=== PATIENT | female | born 1970 | race Two or more races ===

== ENCOUNTER 2020-10-04 12:23 | Inpatient (IN) | payer MEDICAID, OTHER ==
[~2020-10-04] VITALS: Ht 170.2 cm; Wt 73.9 kg
[2020-10-04] VITALS (9 sets, daily range): BP systolic 107–124; BP diastolic 61–74
[2020-10-04] MEDS ORDERED: SODIUM CHLORIDE 0.9% 1,000 ML IV ONE (12:30)
[2020-10-04 12:42] LABS: Basophils # (auto) 0 10 ^3/uL (0-0.2); Eosinophils # (auto) 0.1 10 ^3/uL (0-0.8); Lymphocytes # (auto) 0.9 10 ^3/uL (0.4-5.4); Monocytes # (auto) 0.3 10 ^3/uL (0-1.3); White Blood Cell 4.8 10^3/uL (4.4-10.8)
[2020-10-04 12:44] LABS: Basophils % (auto) 0.8 % (0.0-2.0); Eosinophils % (auto) 1.7 % (0.0-7.0); Hematocrit 14.1 % (36.0-46.0); Lymphocytes % (auto) 18.7 % (10.0-50.0); Mean Corpuscular Hemoglobin 17.9 pg (28.0-32.0); Mean Corpuscular Hgb Conc. 29.1 g/dL (32.0-36.0); Mean Corpuscular Volume 61.5 fL (80.0-100.0); Monocytes % (auto) 6.3 % (0.0-12.0); Neutrophils # (auto) 3.5 10 ^3/uL (1.6-8.6); Neutrophils % (auto) 72.5 % (37.0-80.0); Nucleated Red Blood Cells % 1.1 %; Red Blood Cells 2.29 10^6/uL (4.0-5.20)
[2020-10-04 12:47] LABS: Hemoglobin 4.1 g/dL (12.2-16.2); Red Cell Distribution Width 29.5 % (11.8-14.3)
[2020-10-04 12:56] LABS: Albumin 3.1 g/dL (3.4-5.0); Calcium 8.4 mg/dL (8.5-10.1); Potassium 3.7 mmol/L (3.5-5.1)
[2020-10-04 13:00] LABS: BUN/Creatinine Ratio 19.7; Bilirubin, Total 0.3 mg/dL (0.2-1.0); Total Protein 7.3 g/dL (6.4-8.2)
[2020-10-04] MEDS ORDERED: HYDROcodone-ACET 5/325MG TAB PO ONE (15:30)
[2020-10-04] MEDS ORDERED: DOCUSATE SOD 100 MG CAP PO PRN (22:15)
[2020-10-04] MEDS ORDERED: ACETAMINOPHEN 325 MG TAB PO PRN (22:15)
[2020-10-04] MEDS ORDERED: MORPHINE SULFATE INJECTION 2 MG/ML SYRG IV PRN (22:15)
[2020-10-04] MEDS ORDERED: NITROGLYCERIN 0.4 MG SL TAB SL PRN (22:15)
[2020-10-04] MEDS: HYDROcodone-ACET 5/325MG TAB PO PRN (22:55)
[2020-10-04] MEDS ORDERED: INFLUENZA QUAD 2020-2021 0.5 ML SYRG IM ONE (23:45)
[2020-10-04] MEDS ORDERED: ACET650T12 PO (23:45)
[2020-10-04] MEDS: MORPHINE SULFATE 4 MG/ML SYR/VIAL IV PRN (23:59)
[2020-10-05] VITALS (10 sets, daily range): BP systolic 111–120; BP diastolic 64–87
[2020-10-05 02:55] LABS: Urine Amorphous Crystal FEW /hpf (None Seen); Urine Bacteria FEW /hpf (None Seen); Urine Blood 3+ /uL (Negative); Urine Mucus FEW (None Seen); Urine Specific Gravity 1.011 (1.001-1.035); Urine WBC 8 /hpf (0 - 5)
[2020-10-05 05:48] LABS: Basophils # (auto) 0 10 ^3/uL (0-0.2); Eosinophils # (auto) 0.2 10 ^3/uL (0-0.8); Monocytes # (auto) 0.4 10 ^3/uL (0-1.3); Neutrophils # (auto) 3.1 10 ^3/uL (1.6-8.6); White Blood Cell 4.6 10^3/uL (4.4-10.8)
[2020-10-05 05:50] LABS: Basophils % (auto) 1.1 % (0.0-2.0); Eosinophils % (auto) 3.9 % (0.0-7.0); Hematocrit 23.7 % (36.0-46.0); Hemoglobin 7.3 g/dL (12.2-16.2); Lymphocytes % (auto) 20.9 % (10.0-50.0); Mean Corpuscular Hgb Conc. 30.9 g/dL (32.0-36.0); Mean Corpuscular Volume 71.4 fL (80.0-100.0); Monocytes % (auto) 8.1 % (0.0-12.0); Nucleated Red Blood Cells % 0.3 %; Red Blood Cells 3.32 10^6/uL (4.0-5.20)
[2020-10-05 05:51] LABS: Red Cell Distribution Width 30.4 % (11.8-14.3)
[2020-10-05 06:09] LABS: Calcium 8.4 mg/dL (8.5-10.1); Potassium 3.9 mmol/L (3.5-5.1)
[2020-10-05 06:13] LABS: Albumin 2.8 g/dL (3.4-5.0); BUN/Creatinine Ratio 16.9; Bilirubin, Total 0.5 mg/dL (0.2-1.0); Total Protein 6.7 g/dL (6.4-8.2)
[2020-10-05] MEDS: PANTOPRAZOLE 40 MG/10 ML VIAL INJ IV SCH (09:39)
[2020-10-05] MEDS: ZINC SULFATE 220mg CAP or TAB PO SCH (09:39)
[2020-10-05] MEDS: ONDANSETRON HCL 4 MG/2 ML VIAL IV PRN ×2 (09:39→14:24)
[2020-10-05] MEDS: ASCORBIC ACID 500 MG TAB PO SCH ×2 (09:40→21:52)
[2020-10-05] MEDS: MULTIPLE VITAMIN TAB PO SCH (09:40)
[2020-10-05] MEDS: MORPHINE SULFATE 4 MG/ML SYR/VIAL IV PRN (14:21)
[2020-10-05] MEDS: Ensure HIGH Protein Chocolate 8oz Bottle PO SCH ×2 (14:24→18:48)
[2020-10-05 18:18] LABS: Hemoglobin 7.4 g/dL (12.2-16.2)
[2020-10-05 18:19] LABS: Hematocrit 23.2 % (36.0-46.0)
[2020-10-05] MEDS: SODIUM CHLORIDE 0.9% 1,000 ML IV SCH ×2 (18:49)
[2020-10-05] MEDS: HYDROcodone-ACET 5/325MG TAB PO PRN (21:52)
[2020-10-06 05:17] VITALS: BP 116/70
[2020-10-06 06:34] LABS: Basophils # (auto) 0 10 ^3/uL (0-0.2); Basophils % (auto) 0.7 % (0.0-2.0); Eosinophils # (auto) 0.2 10 ^3/uL (0-0.8); Hemoglobin 7.3 g/dL (12.2-16.2); Lymphocytes # (auto) 0.9 10 ^3/uL (0.4-5.4); Mean Corpuscular Volume 70.6 fL (80.0-100.0); Monocytes # (auto) 0.4 10 ^3/uL (0-1.3); Neutrophils # (auto) 3.6 10 ^3/uL (1.6-8.6); White Blood Cell 5.1 10^3/uL (4.4-10.8)
[2020-10-06 06:36] LABS: Eosinophils % (auto) 4.4 % (0.0-7.0); Hematocrit 23.2 % (36.0-46.0); Lymphocytes % (auto) 17.3 % (10.0-50.0); Mean Corpuscular Hemoglobin 22.3 pg (28.0-32.0); Mean Corpuscular Hgb Conc. 31.6 g/dL (32.0-36.0); Neutrophils % (auto) 70.6 % (37.0-80.0); Nucleated Red Blood Cells % 0.4 %; Red Blood Cells 3.28 10^6/uL (4.0-5.20)
[2020-10-06 06:50] LABS: Red Cell Distribution Width 31.5 % (11.8-14.3)
[2020-10-06 06:54] LABS: % Iron Saturation 3.4 % (15-50)
[2020-10-06 06:55] LABS: Potassium 3.7 mmol/L (3.5-5.1)
[2020-10-06 06:59] LABS: Albumin 2.8 g/dL (3.4-5.0); BUN/Creatinine Ratio 18.2; Bilirubin, Total 0.5 mg/dL (0.2-1.0); Calcium 8.5 mg/dL (8.5-10.1); Total Protein 6.8 g/dL (6.4-8.2)
[2020-10-06 08:00] VITALS: BP 109/64
[2020-10-06 09:04] VITALS: BP 109/64
[2020-10-06] MEDS: Ensure HIGH Protein Chocolate 8oz Bottle PO SCH ×3 (09:54→18:11)
[2020-10-06] MEDS: MULTIPLE VITAMIN TAB PO SCH (09:54)
[2020-10-06] MEDS: ASCORBIC ACID 500 MG TAB PO SCH ×2 (09:54→21:53)
[2020-10-06] MEDS: PANTOPRAZOLE 40 MG/10 ML VIAL INJ IV SCH (09:54)
[2020-10-06] MEDS: ZINC SULFATE 220mg CAP or TAB PO SCH (09:54)
[2020-10-06] MEDS: medroxyPROGESTERone ACETATE 5 MG TAB PO SCH (09:56)
[2020-10-06] MEDS ORDERED: SODIUM FERR GLUC 62.5MG/5ML 125 MG in SODIUM CHL 0.9% 100 ML IV ONE (12:30)
[2020-10-06 13:00] VITALS: BP 108/64
[2020-10-06] MEDS: SODIUM CHLORIDE 0.9% 1,000 ML IV SCH (13:13)
[2020-10-06 17:00] VITALS: BP 107/62
[2020-10-06 22:00] VITALS: BP 119/66
[2020-10-07] MEDS: SODIUM CHLORIDE 0.9% 1,000 ML IV SCH (00:15)
[2020-10-07] MEDS: MORPHINE SULFATE 4 MG/ML SYR/VIAL IV PRN (03:19)
[2020-10-07 05:00] VITALS: BP 117/74
[2020-10-07 07:42] LABS: Potassium 3.8 mmol/L (3.5-5.1)
[2020-10-07 07:49] LABS: Basophils # (auto) 0 10 ^3/uL (0-0.2); Eosinophils # (auto) 0.2 10 ^3/uL (0-0.8); Eosinophils % (auto) 4.1 % (0.0-7.0); Lymphocytes # (auto) 1.2 10 ^3/uL (0.4-5.4); Neutrophils # (auto) 3.5 10 ^3/uL (1.6-8.6)
[2020-10-07 07:52] LABS: Basophils % (auto) 0.6 % (0.0-2.0); Hematocrit 22.9 % (36.0-46.0); Hemoglobin 7.3 g/dL (12.2-16.2); Lymphocytes % (auto) 22.4 % (10.0-50.0); Mean Corpuscular Hemoglobin 22.4 pg (28.0-32.0); Mean Corpuscular Hgb Conc. 31.7 g/dL (32.0-36.0); Mean Corpuscular Volume 70.6 fL (80.0-100.0); Monocytes # (auto) 0.4 10 ^3/uL (0-1.3); Monocytes % (auto) 6.9 % (0.0-12.0); Nucleated Red Blood Cells % 0.3 %; Red Blood Cells 3.25 10^6/uL (4.0-5.20); White Blood Cell 5.3 10^3/uL (4.4-10.8)
[2020-10-07 07:53] LABS: BUN/Creatinine Ratio 17.5; Calcium 8.5 mg/dL (8.5-10.1)
[2020-10-07 08:09] LABS: Red Cell Distribution Width 31.8 % (11.8-14.3)
[2020-10-07 09:00] VITALS: BP_SYST 113; BP_SYST 116; BP_DIAS 67; BP_DIAS 69
[2020-10-07] MEDS: ZINC SULFATE 220mg CAP or TAB PO SCH (09:16)
[2020-10-07] MEDS: MULTIPLE VITAMIN TAB PO SCH (09:16)
[2020-10-07] MEDS: ASCORBIC ACID 500 MG TAB PO SCH (09:16)
[2020-10-07] MEDS: Ensure HIGH Protein Chocolate 8oz Bottle PO SCH ×2 (09:16→12:00)
[2020-10-07] MEDS: medroxyPROGESTERone ACETATE 5 MG TAB PO SCH (09:16)
[2020-10-07] MEDS: PANTOPRAZOLE 40 MG/10 ML VIAL INJ IV SCH (09:16)
[2020-10-07 12:59] VITALS: BP 114/67
[2020-10-07 14:01] VITALS: BP 116/67
== END 2020-10-07 15:05 | disposition home or self-care (01) | DRG 532 ==
LOC: ER 12:23 → EDBD 12:23 → TELE 12:24 → TELE-WESTW 23:17
PROVIDERS: ADMIT Nurse Practitioner Family; ATTEND Internal Medicine
PROC: 30233N1 Transfusion of Nonautologous Red Blood Cells into Peripheral Vein, Percutaneous Approach (ICD-10-PCS; principal; 2020-10-04)
DX: N93.8 Other specified abnormal uterine and vaginal bleeding (principal); E44.0 Moderate protein-calorie malnutrition; D25.1 Intramural leiomyoma of uterus; D50.9 Iron deficiency anemia, unspecified; R93.89 Abnormal findings on diagnostic imaging of other specified body structures; R79.89 Other specified abnormal findings of blood chemistry; R51.9 Headache, unspecified
CPT/HCPCS: 36415; 36430; 71045; 76856; 80048; 80053; 81001; 83540; 83550; 84443; 85014; 85018; 85025; 86850; 86900; 86901; 86920; 87081; 96361; 96374; 96375; C9113; G0378; J2405

== ENCOUNTER 2021-03-30 06:02 | Emergency (ER) | payer MEDICAID ==
[~2021-03-30] VITALS: Ht 170.2 cm; Wt 64.9 kg
[~2021-03-30 06:02] MED LIST: ACET650T12 PO
[2021-03-30] MEDS ORDERED: KETOROLAC TROMETH 60MG/2ML VIAL IM ONE (07:30)
[2021-03-30] MEDS ORDERED: METHOCARBAMOL 500 MG TAB PO ONE (07:30)
[2021-03-30] MEDS ORDERED: MEPERIDINE HCL (50 MG/ML) 1 ML VIAL IM ONE (08:45)
[2021-03-30] MEDS ORDERED: methylPREDNISolone SOD SUCC 125 MG/2 ML VL IM ONE (08:45)
[2021-03-30] MEDS ORDERED: PROMETHAZINE HCL 25 MG/ML 1ML IM ONE (08:45)
[2021-03-30 09:04] VITALS: BP 132/85
== END 2021-03-30 09:31 | disposition left against medical advice (07) ==
LOC: ER 06:02
DX: S32.029A Unspecified fracture of second lumbar vertebra, initial encounter for closed fracture (principal); S34.102A Unspecified injury to L2 level of lumbar spinal cord, initial encounter; C79.51 Secondary malignant neoplasm of bone; X50.1XXA Overexertion from prolonged static or awkward postures, initial encounter; Y93.01 Activity, walking, marching and hiking; Y92.89 Other specified places as the place of occurrence of the external cause; Y99.8 Other external cause status
CPT/HCPCS: 72131; 74176; 96372; 99285; J1885; J2175; J2550; J2930

== ENCOUNTER 2021-06-04 19:08 | Emergency (ER) | payer MEDICAID ==
[~2021-06-04] VITALS: Ht 243.8 cm; Wt 54.4 kg
[2021-06-04 20:09] LABS: Basophils # (auto) 0 10 ^3/uL (0-0.2); Basophils % (auto) 0.4 % (0.0-2.0); Eosinophils # (auto) 0 10 ^3/uL (0-0.8); Eosinophils % (auto) 0.4 % (0.0-7.0); Lymphocytes # (auto) 0.4 10 ^3/uL (0.4-5.4); Monocytes # (auto) 0.6 10 ^3/uL (0-1.3)
[2021-06-04 20:10] LABS: Hematocrit 27.5 % (36.0-46.0); Lymphocytes % (auto) 8.7 % (10.0-50.0); Mean Corpuscular Hgb Conc. 32.5 g/dL (32.0-36.0); Mean Corpuscular Volume 82.9 fL (80.0-100.0); Monocytes % (auto) 11.7 % (0.0-12.0); Neutrophils % (auto) 78.8 % (37.0-80.0); Red Blood Cells 3.32 10^6/uL (4.0-5.20); Red Cell Distribution Width 14.5 % (11.8-14.3)
[2021-06-04 20:27] LABS: Alanine Aminotransferase 9 U/L (13-56); Albumin 2.9 g/dL (3.4-5.0); Anion Gap 21 (5-15); Aspartate Aminotransferase 74 U/L (15-37); Calcium 8.5 mg/dL (8.5-10.1); Carbon Dioxide 11 mmol/L (21-32); Chloride 101 mmol/L (98-107); GFR African American 4 mL/min; GFR Non-African American 3 mL/min; Glucose 69 mg/dL (74-106); Magnesium 2.9 mg/dL (1.6-2.6); Sodium 133 mmol/L (136-145)
[2021-06-04 20:32] LABS: Alkaline Phosphatase 63 U/L (45-117); Bilirubin, Total 0.4 mg/dL (0.2-1.0); Total Protein 7.7 g/dL (6.4-8.2)
[2021-06-04 20:40] LABS: Blood Urea Nitrogen 120 mg/dL (7-18); Potassium 6.3 mmol/L (3.5-5.1)
[2021-06-04 20:43] LABS: Alcohol, Urine < 3.0 mg/dL (0-10); Barbiturate Scree,Urine NEGATIVE (NEGATIVE); Benzodiazephine Screen, Urine NEGATIVE (NEGATIVE); Cannabinoid Screen, Urine NEGATIVE (NEGATIVE); Cocaine Screen, Urine NEGATIVE (NEGATIVE); Opiate Scree,Urine POSITIVE (NEGATIVE); Phencyclidine Screen, Urine NEGATIVE (NEGATIVE)
[2021-06-04 20:51] LABS: Urine Bacteria NONE SEEN /hpf (None Seen); Urine Blood Negative /uL (Negative); Urine WBC 3 /hpf (0 - 5)
[2021-06-04 20:52] LABS: Amphetamine Screen, Urine NEGATIVE (NEGATIVE)
[2021-06-04] MEDS ORDERED: FUROSEMIDE 20 MG/2 ML VIAL IV ONE (21:00)
[2021-06-04] MEDS ORDERED: SODIUM BICARBONATE 8.4% INJ 50ML SYRINGE IV ONE (21:00)
[2021-06-04] MEDS ORDERED: DEXTROSE (50%) 50ML SYRG IV ONE (21:00)
[2021-06-04] MEDS ORDERED: SODIUM CHLORIDE 0.9% 1,000 ML IV ONE (21:00)
[2021-06-04] MEDS ORDERED: InsuLIN REG 1unit/0.01ml Soln (100units/ml) IV ONE ×2 (21:00→21:45)
[2021-06-04] MEDS ORDERED: SODIUM ZIRCONIUM CYCL 10 GM PAK PO ONE (21:00)
[2021-06-04] MEDS ORDERED: AZITHROMYCIN 500MG/ 250ML 250 ML IV ONE ×2 (21:15→22:00)
[2021-06-04] MEDS ORDERED: cefTRIAXone 1GM/50ML D5W 50 ML IV ONE (21:15)
[2021-06-04] MEDS ORDERED: DexAMETHasone SOD PHOS 10MG/1ML VIAL INJ IV ONE (22:00)
[2021-06-04 22:25] LABS: INR 1.08 (0.9-1.15)
[2021-06-05 01:42] VITALS: BP 107/66
== END 2021-06-04 21:35 | disposition short-term general hospital (02) ==
LOC: EDBD 19:08 → ER 19:11
DX: T40.0X1A Poisoning by opium, accidental (unintentional), initial encounter (principal); R41.82 Altered mental status, unspecified; N17.9 Acute kidney failure, unspecified; C79.31 Secondary malignant neoplasm of brain; C80.1 Malignant (primary) neoplasm, unspecified; C79.60 Secondary malignant neoplasm of unspecified ovary; Z20.822 Contact with and (suspected) exposure to COVID-19; Y92.9 Unspecified place or not applicable
CPT/HCPCS: 36415; 51702; 70450; 71045; 71250; 80053; 80307; 81001; 82962; 83605; 83735; 84132; 84484; 85025; 85610; 87040; 87086; 87426; 93005; 96365; 96368; 96375; 99285; J0456; J0696; J1100; J1815; J1940; J7042